=== PATIENT | female | born 1940 | race Caucasian/White ===

== ENCOUNTER 2017-06-22 14:08 | Outpatient (CLI) | payer MEDICARE, OTHER | END 2017-06-22 14:09 | disposition home or self-care (01) | LOC: BICMAMMO 14:08 | PROVIDERS: ATTEND Internal Medicine | DX: M81.0 Age-related osteoporosis without current pathological fracture (principal) | CPT/HCPCS: 77080 ==

== ENCOUNTER 2018-08-03 10:34 | Outpatient (CLI) | payer MEDICARE, OTHER ==
--- NOTE | 2018-08-03 13:26 | BD ---
DEXA BONE DENSITY STUDY: HISTORY: Postmenopausal. FINDINGS: Lumbar Spine: BMD (g/cm2) L1 0.874 T-Score: -1.1 L2 0.953 T-Score: -0.7 L3 0.972 T-Score: -1.0 L4 1.043 T-Score: -0.2 L1-L4 0.966 T-Score: -0.7 Femoral Neck: 0.807 T-Score: -0.4 Total Femur: 0.826 T-Score: -0.9 Impression: Normal bone mineral density of the lumbar spine and left femoral neck. POS: [facility]
== END 2018-08-03 10:35 | disposition home or self-care (01) ==
LOC: BICMAMMO 10:34
PROVIDERS: ATTEND Internal Medicine
DX: M85.80 Other specified disorders of bone density and structure, unspecified site (principal)
CPT/HCPCS: 77080

== ENCOUNTER 2020-12-08 12:33 | Outpatient (CLI) | payer MEDICARE ==
[2020-12-08 17:06] LABS: SARS-CoV-2 NAA Rapid Test Not Detected (NotDetected)
== END 2020-12-08 12:34 | disposition home or self-care (01) ==
LOC: LABBT 12:33
PROVIDERS: ATTEND Internal Medicine Pulmonary Disease
DX: Z01.812 Encounter for preprocedural laboratory examination (principal); J90 Pleural effusion, not elsewhere classified; Z20.822 Contact with and (suspected) exposure to COVID-19
CPT/HCPCS: U0002

== ENCOUNTER 2020-12-09 07:59 | Day surgery (SDC) | payer MEDICARE ==
[2020-12-09] MEDS ORDERED: Heparin 1,000 UNITS/ML VIAL ONE (08:46)
[2020-12-09 10:19] LABS: RBC Count-Automated (BF) 14364 /cu.mm; WBC/Nucleated-Auto (BF) 1680 uL
[2020-12-09 10:24] LABS: BF Color Yellow; Clarity Hazy (Clear); Tube # EDTA
[2020-12-09 10:46] LABS: BF Segmented Neutrophils 12 %; Cell Count Non Hematic 30 %; Lymphocytes 58 %
== END 2020-12-09 10:10 | disposition home or self-care (01) ==
LOC: SDC 07:59
PROVIDERS: ATTEND Internal Medicine Pulmonary Disease
PROC: 0W9B3ZZ Drainage of Left Pleural Cavity, Percutaneous Approach (ICD-10-PCS; principal; 2020-12-09)
DX: J90 Pleural effusion, not elsewhere classified (principal); I10 Essential (primary) hypertension; M19.90 Unspecified osteoarthritis, unspecified site; Z85.3 Personal history of malignant neoplasm of breast
CPT/HCPCS: 32554; 71045; 82150; 82945; 83615; 83986; 84157; 84478; 85060; 87070; 87116; 87205; 87206; 88112; 88305; 88341; 88342; 89051; J1642; J1644

== ENCOUNTER 2021-01-07 13:07 | Outpatient (CLI) | payer MEDICARE | END 2021-01-07 13:08 | disposition home or self-care (01) | LOC: RAD 13:07 | PROVIDERS: ATTEND Internal Medicine Pulmonary Disease | DX: R06.00 Dyspnea, unspecified (principal); J90 Pleural effusion, not elsewhere classified | CPT/HCPCS: 71046 ==

== ENCOUNTER 2021-04-14 13:00 | Outpatient (CLI) | payer MEDICARE | END 2021-04-14 13:01 | disposition home or self-care (01) | LOC: RAD 13:00 | PROVIDERS: ATTEND Internal Medicine | DX: R06.00 Dyspnea, unspecified (principal); I70.0 Atherosclerosis of aorta; M51.34 Other intervertebral disc degeneration, thoracic region; M25.78 Osteophyte, vertebrae | CPT/HCPCS: 71046 ==

== ENCOUNTER 2022-02-18 05:27 | Day surgery (SDC) | payer MEDICARE ==
[2022-02-16 15:33] VITALS: BMI 28.3
[2022-02-18] MEDS ORDERED: CEFAZOLIN 1 GM VIAL ONE (06:40)
[2022-02-18] MEDS ORDERED: Gentamicin 80 MG/2 ML VIAL ONE (06:40)
[2022-02-18 07:40] LABS: #Eosinphils 0.1 thou/uL (0.0-0.7); #Lymphocytes 1.6 thou/uL (1.20-3.40); #Monocytes 0.7 thou/uL (0.11-0.59); #Neutrophils 3.9 thou/uL (1.40-6.50); %Basophils 0.4 % (0.0-1.0); %Eosinophils 1.2 % (0.0-10.0); %Lymphocytes 25.8 % (21.0-51.0); %Monocytes 11.2 % (0.0-10.0); %Neutrophils 61.5 % (42.0-75.0); Hemoglobin 13.8 g/dL (12.0-16.0); Mean Corpuscular HGB CONC 32.2 g/dL (32.0-36.0); Mean Corpuscular Hemoglobin 31.2 pg (27.0-31.0); Mean Corpuscular Volume 97.1 fl (78.0-98.0); Mean Platelet Volume 8.3 fL (7.4-10.4); Platelet Count 239 10x3/uL (130-400); RBC Distribution Width 12.4 % (11.5-14.5); Red Blood Cell (RBC) Count 4.41 mill/uL (4.20-5.40); White Blood Cell (WBC) Count 6.3 10x3/uL (4.8-10.8)
[2022-02-18] MEDS ORDERED: Lidocaine 1% (PF) 30 ML VIAL ONE (08:53)
[2022-02-18] MEDS ORDERED: Vancomycin 1 GM in Premix Bag 1 BAG IVPB SCH (09:15)
[2022-02-18] MEDS ORDERED: FENTANYL 50 MCG/ML 1 ML VIAL ONE (09:25)
[2022-02-18] MEDS ORDERED: Midazolam HCl 2 mg/2 ml Vial ONE (09:25)
[2022-02-18] MEDS ORDERED: Vancomycin (BATCH) 1.5 GRAM/300 ML BAG ONE (09:31)
[2022-02-18] MEDS ORDERED: Iopamidol 370 76% 50 ML VIAL FS ONE (11:27)
== END 2022-02-18 12:55 | disposition home or self-care (01) ==
LOC: CCL 05:27
PROVIDERS: ATTEND Internal Medicine Cardiovascular Disease
PROC: B5171ZZ Fluoroscopy of Left Subclavian Vein using Low Osmolar Contrast (ICD-10-PCS; principal; 2022-02-18)
PROC: B5161ZZ Fluoroscopy of Right Subclavian Vein using Low Osmolar Contrast (ICD-10-PCS; 2022-02-18)
DX: I49.5 Sick sinus syndrome (principal); R00.1 Bradycardia, unspecified; I82.B13 Acute embolism and thrombosis of subclavian vein, bilateral; I48.3 Typical atrial flutter; I44.0 Atrioventricular block, first degree; I11.0 Hypertensive heart disease with heart failure; I50.32 Chronic diastolic (congestive) heart failure; I48.11 Longstanding persistent atrial fibrillation; Z85.3 Personal history of malignant neoplasm of breast; Z79.01 Long term (current) use of anticoagulants; Z79.890 Hormone replacement therapy; Z79.899 Other long term (current) drug therapy; Z91.048 Other nonmedicinal substance allergy status; Z87.891 Personal history of nicotine dependence
CPT/HCPCS: 36010; 75820; 75827; 85025; C1769; C1894; J0690; J1580; J2001; J2250; J3010; J3370; J3370-JW

== ENCOUNTER 2022-03-10 07:53 | Observation (INO) | payer MEDICARE ==
[2022-03-08 15:05] VITALS: BMI 28.3
[2022-03-10 08:41] LABS: #Eosinphils 0.1 thou/uL (0.0-0.7); #Lymphocytes 1.3 thou/uL (1.20-3.40); #Monocytes 0.6 thou/uL (0.11-0.59); #Neutrophils 3.7 thou/uL (1.40-6.50); %Basophils 0.5 % (0.0-1.0); %Eosinophils 1.4 % (0.0-10.0); %Lymphocytes 22.5 % (21.0-51.0); %Monocytes 10.2 % (0.0-10.0); %Neutrophils 65.4 % (42.0-75.0); Hemoglobin 13.9 g/dL (12.0-16.0); Mean Corpuscular HGB CONC 32.8 g/dL (32.0-36.0); Mean Corpuscular Hemoglobin 31.5 pg (27.0-31.0); Mean Corpuscular Volume 96.1 fl (78.0-98.0); Mean Platelet Volume 7.8 fL (7.4-10.4); Platelet Count 300 10x3/uL (130-400); RBC Distribution Width 12.5 % (11.5-14.5); Red Blood Cell (RBC) Count 4.41 mill/uL (4.20-5.40); White Blood Cell (WBC) Count 5.7 10x3/uL (4.8-10.8)
[2022-03-10 08:50] LABS: INR-International Normal Ratio 0.9
[2022-03-10 09:04] LABS: ALT (SGPT) 17 U/L (8-55); AST (SGOT) 20 U/L (5-34); Albumin 4.6 g/dL (3.4-4.8); Alkaline Phosphatase 65 U/L (40-110); Anion Gap 15 mmol/L (10-20); BUN (Urea Nitrogen) 47 mg/dL (9.8-20.1); Calc. Creatinine Clearance 34 mL/min (70-130); Calcium 10.1 mg/dL (7.8-10.44); Carbon Dioxide 22 mmol/L (23-31); Chloride 106 mmol/L (98-107); Estimated GFR 36; Globulin 2.9 g/dL (2.4-3.5); Glucose 90 mg/dL (83-110); Potassium 5.5 mmol/L (3.5-5.1); Protein, Total 7.5 g/dL (5.8-8.1); Sodium 137 mmol/L (136-145)
[2022-03-10] MEDS ORDERED: Lidocaine 1% (PF) 30 ML VIAL ONE (10:15)
[2022-03-10] MEDS ORDERED: Heparin 10,000 UNITS/ 10 ML VIAL ONE (10:15)
[2022-03-10] MEDS ORDERED: Vancomycin (BATCH) 1.5 GRAM/300 ML BAG ONE (10:31)
[2022-03-10] MEDS ORDERED: Midazolam HCl 2 mg/2 ml Vial ONE (11:13)
[2022-03-10] MEDS ORDERED: Fentanyl 250 MCG/5 ML VIAL ONE (11:47)
[2022-03-10] MEDS ORDERED: PHENYLEPHRINE-NS 100 MCG/ML 10 ML SYRINGE ONE (12:29)
[2022-03-10] MEDS ORDERED: Ondansetron PF 4 MG/2 ML Vial ONE (12:29)
[2022-03-10] MEDS ORDERED: PROPOFOL 200 MG/20 ML VIAL ONE (12:29)
[2022-03-10] MEDS ORDERED: ePHEDrine 50 MG/ML VIAL ONE (12:29)
[2022-03-10] MEDS ORDERED: Glycopyrrolate 0.2 MG/ML 5 ML SYRINGE ONE (12:29)
[2022-03-10] MEDS ORDERED: CEFAZOLIN 1 GM VIAL ONE (13:30)
[2022-03-10] MEDS ORDERED: Furosemide 40 MG/4 ML VIAL ONE (14:22)
[2022-03-10] MEDS ORDERED: Promethazine HCl 25 MG/ML VIAL IM PRN (14:42)
[2022-03-10] MEDS ORDERED: Ondansetron HCl/PF 4 MG/2 ML Vial IVP PRN (14:42)
[2022-03-10] MEDS ORDERED: Iopamidol 370 76% 50 ML VIAL FS ONE (15:45)
[2022-03-10] MEDS ORDERED: Acetaminophen 325 MG TAB PO PRN (17:28)
[2022-03-10] MEDS: Lisinopril 20 MG TAB PO SCH (20:17)
[2022-03-11 04:52] LABS: #Eosinphils 0.1 thou/uL (0.0-0.7); #Lymphocytes 1.1 thou/uL (1.20-3.40); #Monocytes 0.9 thou/uL (0.11-0.59); #Neutrophils 4.7 thou/uL (1.40-6.50); %Basophils 0.3 % (0.0-1.0); %Lymphocytes 16.4 % (21.0-51.0); %Monocytes 13.5 % (0.0-10.0); %Neutrophils 68.9 % (42.0-75.0); Hemoglobin 11.5 g/dL (12.0-16.0); Mean Corpuscular HGB CONC 32.3 g/dL (32.0-36.0); Mean Corpuscular Hemoglobin 31.1 pg (27.0-31.0); Mean Corpuscular Volume 96.2 fl (78.0-98.0); Mean Platelet Volume 7.8 fL (7.4-10.4); Platelet Count 217 10x3/uL (130-400); RBC Distribution Width 12.5 % (11.5-14.5); White Blood Cell (WBC) Count 6.8 10x3/uL (4.8-10.8)
[2022-03-11 05:14] LABS: Anion Gap 10 mmol/L (10-20); BUN (Urea Nitrogen) 29 mg/dL (9.8-20.1); Calc. Creatinine Clearance 54 mL/min (70-130); Calcium 8.8 mg/dL (7.8-10.44); Carbon Dioxide 23 mmol/L (23-31); Chloride 108 mmol/L (98-107); Estimated GFR 62; Glucose 102 mg/dL (83-110); Potassium 5.3 mmol/L (3.5-5.1); Sodium 136 mmol/L (136-145)
[2022-03-11] MEDS ORDERED: Levothyroxine Sodium 100 MCG TAB PO SCH (06:00)
[2022-03-11 08:23] VITALS: BP 114/58; TEMP 97.6
[2022-03-11] MEDS: Lisinopril 20 MG TAB PO SCH (08:33)
[2022-03-11] MEDS ORDERED: Amlodipine 5 MG TAB PO SCH (09:00)
== END 2022-03-11 10:41 | disposition home or self-care (01) ==
LOC: SDC 07:53 → 2SW 14:43 → SDC 14:44 → 2SW 14:44
PROVIDERS: ADMIT Internal Medicine Cardiovascular Disease; ATTEND Internal Medicine Cardiovascular Disease
PROC: 02HK3NZ Insertion of Intracardiac Pacemaker into Right Ventricle, Percutaneous Approach (ICD-10-PCS; principal; 2022-03-10)
DX: I49.5 Sick sinus syndrome (principal); R00.1 Bradycardia, unspecified; I10 Essential (primary) hypertension; M19.90 Unspecified osteoarthritis, unspecified site; I45.2 Bifascicular block; I48.3 Typical atrial flutter; Z85.3 Personal history of malignant neoplasm of breast; Z79.01 Long term (current) use of anticoagulants; Z79.890 Hormone replacement therapy; Z79.899 Other long term (current) drug therapy; Z91.048 Other nonmedicinal substance allergy status; Z20.822 Contact with and (suspected) exposure to COVID-19
CPT/HCPCS: 33210; 71045; 80048; 80053; 85025 ×2; 85610; 86850; 86900; 86901; 93005 ×2; C1760; C1769 ×3; C1894 ×2; J3370; U0003; U0005; 33274; 36415; 93010; C1786; J0690; J1644; J1940; J2001; J2250; J2405; J2704; J3010; J3490; Q9967

== ENCOUNTER 2022-04-14 09:43 | Outpatient (CLI) | payer MEDICARE | END 2022-04-14 09:44 | disposition home or self-care (01) | LOC: RAD 09:43 | PROVIDERS: ATTEND Internal Medicine | DX: R06.00 Dyspnea, unspecified (principal) | CPT/HCPCS: 71046 ==